=== PATIENT | female | born 1995 | race Caucasian/White ===

== ENCOUNTER 2017-11-26 09:57 | Emergency (ER) | payer MEDICAID ==
[~2017-11-26] VITALS: Ht 162.6 cm; Wt 70.0 kg
[~2017-11-26 09:57] MED LIST: DEPO150I IM; FERR325T PO; IBUP-238 PO; PREN0.01 PO
[2017-11-26 10:05] VITALS: BP 117/69; PULSE 88; RESP 16; TEMP 97.8; O2SAT 100
--- NOTE | 2017-11-26 13:06 | PD ---
HPI Chief Complaint: GI Complaint Time Seen by Provider: 12:42 Travel History International Travel<30 days: No Contact w/Intl Traveler<30days: No Traveled to known affect area: No History of Present Illness HPI 22-year-old female presents the ED for evaluation of 2 day history of pelvic pain. Described as aching, waxing and waning, 7/10 maximally, currently 2/10. LMP 10/24/17. Patient endorses one day of vaginal spotting a few days ago. She denies fever, chills, nausea, vomiting, constipation, diarrhea, vaginal discharge, back pain. She states that she took an at home test that was faintly positive. No treatment attempted before arrival. Patient states that she is scheduled for tubal ligation next month with Dr. Alonzo in [place]. [facility] Past Medical History ?: Unknown LMP: 10/24/17 Social History Alcohol Use: No Tobacco Use: No Substance Use: No Allergies-Medications (Allergen,Severity, Reaction): Coded Allergies: penicillin G (Unverified Allergy, Severe, hives, 01/16/17) Reported Meds & Prescriptions Reported Meds & Active Scripts Active Motrin (Ibuprofen) 800 Mg Tab 800 Mg PO TID Depo-Provera Contraceptive (Medroxyprogesterone Acetate) 150 Mg/Ml Susp 150 Mg IM Q90D Iron (Ferrous Sulfate) 325 Mg Tab 325 Mg PO BID Reported Vit ( Plus) (Prenat Multivit/Vp Informatics/Iron/Folic Ac) Tab 1 Tab PO DAILY Review of Systems Except as stated in HPI: all other systems reviewed are Neg Physical Exam Narrative GENERAL: Well-nourished, well-developed female no acute distress. SKIN: Focused skin assessment warm/dry. HEAD: Normocephalic. EYES: No scleral icterus. No injection or drainage. NECK: Supple, trachea midline. No JVD or lymphadenopathy. CARDIOVASCULAR: Regular rate and rhythm without murmurs, gallops, or rubs. RESPIRATORY: Breath sounds equal bilaterally. No accessory muscle use. GASTROINTESTINAL: Abdomen soft, nondistended. Mildly tender in bilateral lower quadrants. Active bowel sounds. No suprapubic tenderness. MUSCULOSKELETAL: No cyanosis, or edema. BACK: Nontender without obvious deformity. No CVA tenderness. Data Data Last Documented VS Vital Signs Date Time Temp Pulse Resp B/P (MAP) Pulse Ox O2 Delivery O2 Flow Rate FiO2 11/26/17 10:05 97.8 88 16 117/69 (85) 100 Orders Orders Urinalysis - C+S If Indicated (11/26/17 13:01) Ed Urine Pregnancytest Poc (11/26/17 13:01) Beta Hcg (Quant/Titer) (11/26/17 13:03) Us Pelvis (Ques Pr/Ect)W Trans (11/26/17 ) Ed Discharge Order (11/26/17 15:29) Labs Laboratory Tests Test 11/26/17 13:07 Urine Color Straw Urine Turbidity CLEAR Urine pH 6.0 Urine Specific [place] 1.011 Urine Protein NEG mg/dL Urine Glucose (UA) NEG mg/dL Urine Ketones NEG mg/dL Urine Occult Blood NEG Urine Nitrite NEG Urine Bilirubin NEG Urine Urobilinogen LESS THAN 2 mg/dL Urine Leukocyte Esterase NEG Urine WBC LESS THAN 1 /hpf Urine Squamous Epithelial Cells 1 /hpf Microscopic Urinalysis Comment CULT NOT INDICATED Human Chorionic Gonadotropin, Quant 4794 MIU/ML MDM Medical Decision Making Medical Screen Exam Complete: Yes Emergency Medical Condition: Yes Differential Diagnosis Early versus ectopic versus dysmenorrhea versus UTI versus STD versus other Narrative Course 22-year-old female presents the ED for evaluation of 2 day history of pelvic pain. Described as aching, waxing and waning, 7/10 maximally, currently 2/10. LMP 10/24/17. Patient endorses one day of vaginal spotting a few days ago. She denies fever, chills, nausea, vomiting, constipation, diarrhea, vaginal discharge, back pain. She states that she took an at home test that was faintly positive. No treatment attempted before arrival. Patient states that she is scheduled for tubal ligation next month with Dr. Alonzo in [place]. Vitals reviewed. Physical exam is reassuring. ED urine test positive. No bacteriuria on the UA. HCG 4794. Transvaginal ultrasound reveals a small cystic structure in the endometrial canal likely representing a gestational sac representing an early IUP. No yolk sac or embryo is seen at this time and the gestational sac is too small for accurate dating. Medical follow-up and imaging follow-up as needed to ensure appropriate correction of . Otherwise unremarkable. I discussed the results of the workup with the patient. She has established care with an product coordinator in [place]. She is provided copies of the results of the ultrasound and hCG testing. She is instructed to follow-up for serial hCG testing. She is stable and discharged home. Diagnosis Primary Impression: Intrauterine Referrals: Transport Conductor Additional Instructions: Rest, hydrate. Begin vitamins. Your hormone estimates the gestational age of the to be 3-4 weeks. The ultrasound shows evidence of an intrauterine but this is not confirmed as it is too early to see a heartbeat. Follow-up with the product coordinator for repeat hCG testing. Return to the ED for any urgent or emergent medical condition. Disposition: 01 DISCHARGE HOME Condition: Stable Alessandra Cramer Nov 26, 2017 13:06
[2017-11-26 13:23] LABS: BILIRUBIN, URINE NEG (NEG); BLOOD, URINE NEG (NEG); GLUCOSE,URINE NEG (NEG); KETONE, URINE NEG (NEG); NITRITE,URINE NEG (NEG); SQUAMOUS EPITHELIAL CELL URINE 1 /hpf (0-5); URINE COLOR Straw (YELLW/STRAW); URINE LEUKOCYTE ESTERASE NEG (NEG)
--- NOTE | 2017-11-26 15:22 | RADRPT ---
EXAM DATE: 11/26/2017 3:17 PM EDT AGE/SEX: 22 years / Female INDICATIONS: Pelvic pain. CLINICAL DATA: This is the patient's initial encounter. Patient reports that signs and symptoms have been present for > 1 year and indicates a pain score of 3/10. MEDICAL/SURGICAL HISTORY: . . COMPARISON: No prior exams available for comparison. TECHNIQUE: Real-time ultrasound of the pelvis was performed using an endovaginal transducer. [facility] MEASUREMENTS: Uterus:__9.2 x 5.2 x 7.2 cm Endometrial Stripe:__11 mm Right Ovary:__ 4.5 x 1.9 x 2.5 cm Left Ovary:__ 3.0 x 1.6 x 2.4 cm FINDINGS: Uterus: The myometrium has homogeneous echotexture without mass. Right Ovary: Ovary contains no mass or significant cystic lesion. Follicles are present. Left Ovary: Ovary contains no mass or significant cystic lesion. Follicles are present. Other: There is an ovoid cystic structure eccentrically located within the endometrium measuring 6 x 4 x 8 mm. No yolk sac or embryo is identified. CONCLUSION: 1. There is a small cystic structure within the endometrial canal likely representing a gestational sac representing an early intrauterine . However, no yolk sac or embryo is seen at this time and the gestational sac is too small for accurate dating. Suggest clinical follow-up and imaging fol low-up, as needed, to ensure appropriate progression of . 2. Remainder of the examination is within normal limits. Electronically signed by: Yair Chadwick MD 11/26/2017 3:20 PM EDT
== END 2017-11-26 15:42 | disposition home or self-care (01) ==
LOC: NEPD 09:57
DX: O26.851 Spotting complicating pregnancy, first trimester (principal); Z3A.01 Less than 8 weeks gestation of pregnancy
CPT/HCPCS: 76700; 76817; 81001; 84702; 84703; 99284